=== PATIENT | male | born 1935 | race Caucasian/White ===

== ENCOUNTER 2022-06-29 08:34 | Emergency (ER) | payer BC, MEDICARE ==
[~2022-06-29] VITALS: Ht 180.3 cm; Wt 84.1 kg
[~2022-06-29 08:34] MED LIST: HYDR-4383 PO; HYDR25TA5 PO; METF500T PO; POTA10TA21 PO; VALA100031 PO
--- NOTE | 2022-06-29 09:20 | NUR ---
lab at bedside
[2022-06-29 09:34] LABS: BASOPHILS # (AUTO) 0.1 X10'3 (0-0.2); BASOPHILS % (AUTO) 0.4 % (0-1); EOSINOPHILS % (AUTO) 0.1 % (0-6); HEMATOCRIT 42.8 % (42.0-52.0); HEMOGLOBIN 14.7 g/dl (14.0-17.9); LYMPHOCYTES # (AUTO) 1.6 X10'3 (1.1-4.8); LYMPHOCYTES % (AUTO) 11.4 % (21-51); MEAN CORPUSCULAR HGB CONC 34.4 g/dL (33.0-36.5); MEAN PLATELET VOLUME 9.1 FL (7.4-10.4); MONOCYTES # (AUTO) 0.9 X10'3 (0-0.9); MONOCYTES % (AUTO) 6.1 % (2-12); NEUTROPHILS # (AUTO) 11.7 X10'3 (1.8-7.7); PLATELET COUNT 200 X10'3 (140-440); RED BLOOD COUNT 4.61 X10'6 (4.70-6.10); RED CELL DISTRIBUTION WIDTH 14.2 % (11.5-14.5); WHITE BLOOD COUNT 14.2 X10'3 (4.5-11.0)
[2022-06-29 09:48] LABS: ALANINE AMINOTRANSFERASE 31 U/L (12-78); ALBUMIN 3.8 G/DL (3.4-5.0); ALKALINE PHOSPHATASE 50 IU/L (46-116); ANION GAP 14 (8-16); ASPARTATE AMINO TRANSFERASE 17 U/L (10-37); BILIRUBIN,TOTAL 0.8 MG/DL (0.1-1.0); BLOOD UREA NITROGEN 27 MG/DL (7-18); BUN/CREATININE RATIO 10.8 (5.4-32.0); CALCIUM 9.5 MG/DL (8.5-10.1); CHLORIDE 105 MMOL/L (99-107); GLUCOSE 234 MG/DL (70-104); LIPASE 69 U/L (73-393); POTASSIUM 3.8 MMOL/L (3.5-5.1); SODIUM 141 MMOL/L (135-145); TOTAL PROTEIN 7.7 G/DL (6.4-8.2); eGFR 25 ML/MIN
[2022-06-29] MEDS ORDERED: normal saline 1000ml 1,000 ML IV ONE (10:00)
[2022-06-29 11:28] LABS: CLARITY,URINE SLIGHTLY CLOUDY (Clear); COLOR,URINE YELLOW (Yellow); GLUCOSE, URINE 250 mg/dl (Neg); KETONES,URINE TRACE mg/dl (Neg); LEUKOCYTE ESTERASE ,URINE NEGATIVE (Neg); NITRITES, URINE NEGATIVE (Neg); OCCULT BLOOD,URINE LARGE (Neg); PROTEIN,URINE 30 mg/dl (Neg); UROBILINOGEN,URINE 0.2 E.U/dL (0.2-1.0)
[2022-06-29 11:35] LABS: UA COLLECTION TYPE CLN CATCH MIDSTREAM
[2022-06-29 11:46] LABS: WBC,URINE 0-4 /HPF (0-4)
[2022-06-29 11:47] LABS: BACTERIA,URINE NONE SEEN /HPF (Neg); MUCUS STRANDS NONE SEEN /LPF (Neg); RBC,URINE 50-100 /HPF (0-2); SQUAMOUS EPITHELIAL CELL,UR FEW /LPF (FEW)
[2022-06-29] MEDS ORDERED: morphine 4 MG/ML inj SYRINge IV ONE (12:15)
[2022-06-29] MEDS ORDERED: ONDA4TAB12 PO (12:59)
[2022-06-29] MEDS ORDERED: HYDR-3972 PO (12:59)
[2022-06-29] MEDS ORDERED: FLO0.4C PO (12:59)
[2022-06-29] MEDS ORDERED: ondansetron 4mg rapidly disintigrating tab PO ONE (13:05)
[2022-06-29] MEDS ORDERED: HYDROcodone/acetaminophen 10/325mg tab PO ONE (13:05)
[2022-06-29] MEDS ORDERED: tamsulosin 0.4mg capsule PO SCH ×2 (13:15→21:00)
[2022-06-29 13:30] VITALS: BP 193/98
== END 2022-06-29 13:42 | disposition home or self-care (01) ==
LOC: ER 08:34
DX: N23 Unspecified renal colic (principal); N20.0 Calculus of kidney; E11.9 Type 2 diabetes mellitus without complications; Z88.0 Allergy status to penicillin; Z90.49 Acquired absence of other specified parts of digestive tract
CPT/HCPCS: 36415; 74176; 80053; 81001; 83690; 84484; 85025; 93005; 96361; 96374; 99285; J2270; J7030